=== PATIENT | female | born 1970 | race Caucasian/White ===

== ENCOUNTER → 2018-05-26 15:59 | Outpatient (CLI) | payer OTHER ==
[~2018-05-26 15:59] MED LIST: ASHWAGANDHA; BIOTIN PO; CALTRATE 600 +1 EACH PO; CALTRATE 600+D1 EAC1 PO; DIM PO; MULTI FOR HER1 EAC1 PO; NEPHRONEX-SL T1 EACH PO; OSTERA TABLET1 EACH PO; SYNTHROID112 MCG PO; T3 PO; [UNRECOGNIZED DRUG - OTHER]
== END | disposition home or self-care (01) ==
LOC: LAB 15:59
DX: D68.8 Other specified coagulation defects (principal)

== ENCOUNTER 2018-05-28 06:20 | Day surgery (SDC) | payer OTHER | END 2018-05-28 12:25 | disposition home or self-care (01) | LOC: CIR.AMB 06:20 | DX: K60.5 Anorectal fistula (principal) ==

== ENCOUNTER 2019-09-11 14:28 | Outpatient (CLI) | payer OTHER | END 2019-09-11 14:34 | disposition home or self-care (01) | LOC: RAD 14:28 | DX: S82.51XA Displaced fracture of medial malleolus of right tibia, initial encounter for closed fracture (principal) ==

== ENCOUNTER 2020-08-01 16:15 | Outpatient (CLI) | payer OTHER | END 2020-08-01 16:34 | disposition home or self-care (01) | LOC: RAD 16:15 | PROVIDERS: ATTEND Neurological Surgery | DX: M54.2 Cervicalgia (principal); M25.511 Pain in right shoulder ==

== ENCOUNTER 2021-08-08 17:50 | Emergency (ER) | payer OTHER ==
[~2021-08-08] VITALS: Ht 165.1 cm; Wt 59.0 kg
[2021-08-08] MEDS ORDERED: SYNTHROID100 MCG PO (17:59)
[2021-08-08] MEDS ORDERED: EEMT HS 0.625-1 EACH PO (18:00)
== END 2021-08-08 21:22 | disposition home or self-care (01) ==
LOC: ER 17:50
DX: S00.93XS Contusion of unspecified part of head, sequela (principal); Y93.9 Activity, unspecified; Y92.89 Other specified places as the place of occurrence of the external cause; W19.XXXS Unspecified fall, sequela

== ENCOUNTER → 2021-08-30 | Emergency (ER) | payer OTHER ==
[~2021-08-30] VITALS: Ht 165.1 cm; Wt 57.6 kg
[~2021-08-30] MED LIST changes: +AMOX-CLAV 875-1 EACH PO; +EEMT HS 0.625-1 EACH PO; +KETO10TA2 PO; +SYNTHROID100 MCG PO
== END | disposition home or self-care (01) ==
LOC: ER 09:57
DX: J03.90 Acute tonsillitis, unspecified (principal); Z03.818 Encounter for observation for suspected exposure to other biological agents ruled out; E03.9 Hypothyroidism, unspecified

== ENCOUNTER 2022-11-29 15:02 | Outpatient (CLI) | payer OTHER | END 2022-11-29 15:11 | disposition home or self-care (01) | LOC: RAD 15:02 | DX: M24.541 Contracture, right hand (principal) ==

== ENCOUNTER 2023-05-03 13:47 | Outpatient (CLI) | payer OTHER | END 2023-05-03 13:58 | disposition home or self-care (01) | LOC: RAD 13:47 | PROVIDERS: ATTEND Orthopaedic Surgery Sports Medicine | DX: M25.561 Pain in right knee (principal) ==